=== PATIENT | female | born 1960 | race Caucasian/White ===

== ENCOUNTER 2017-08-26 10:13 | Emergency (ER) | payer SELFPAY ==
[2017-08-26 10:24] VITALS: BP 145/82; PULSE 93; RESP 20; TEMP 99.1; O2SAT 100
--- NOTE | 2017-08-26 12:27 | C.PDOC ---
History Of Present Illness 56-year-old female, PMHx includes Anxiety, presents to the emergency department with complaints of palpitations and anxiety. Patient states she has been experiencing palpitations that started this morning with feeling nervous, worried and very anxious. She admits to a Hx of anxiety, and states this is typical of her usual symptoms. She states she has been stressed because of family problems in home country. She is trying to arrange for travel. Denies nausea/vomiting, fever, chills, SI/HI, or any other associated symptoms. Time Seen by Provider: 08/26/17 11:31 Chief Complaint (Nursing): High Blood Pressure History Per: Patient History/Exam Limitations: no limitations Current Symptoms Are (Timing): Still Present Severity: Moderate Past Medical History Reviewed: Historical Data, Nursing Documentation, Vital Signs Vital Signs: Last Vital Signs Temp 99.1 F 08/26/17 10:19 Pulse 93 H 08/26/17 10:19 Resp 20 08/26/17 10:19 BP 145/82 08/26/17 10:19 Pulse Ox 100 08/26/17 18:28 - Medical History PMH: Anxiety, HTN Surgical History: No Surg Hx Family History: States: No Known Family Hx - Social History Hx Alcohol Use: No Hx Substance Use: No - Immunization History Hx Tetanus Toxoid Vaccination: No Hx Influenza Vaccination: No Hx Pneumococcal Vaccination: No Review Of Systems Constitutional: Negative for: Fever, Chills Cardiovascular: Negative for: Chest Pain, Palpitations Respiratory: Negative for: Shortness of Breath, Hemoptysis Gastrointestinal: Negative for: Vomiting Neurological: Negative for: Weakness, Numbness Psych: Positive for: Anxiety Physical Exam - Physical Exam Appears: Non-toxic, No Acute Distress, Other (appears anxious) Skin: Normal Color, Warm, Dry, No Rash Head: Atraumatic, Normacephalic Eye(s): bilateral: Normal Inspection, EOMI Nose: Normal Oral Mucosa: Moist Lips: Normal Appearing Throat: Normal Neck: Normal Chest: Symmetrical Cardiovascular: Rhythm Regular, No Murmur Respiratory: Normal Breath Sounds, No Rhonchi Gastrointestinal/Abdominal: Soft, No Tenderness Back: Normal Inspection, No Vertebral Tenderness, No Paraspinal Tenderness Extremity: Bilateral: Atraumatic, Normal Color And Temperature, Normal ROM Neurological/Psych: Oriented x3, Normal Speech Gait: Steady ED Course And Treatment ECG: Interpreted By Me, Viewed By Me ECG Rhythm: Sinus Tachycardia ECG Interpretation: No Acute Changes Rate From EC O2 Sat by Pulse Oximetry: 100 (RA) Pulse Ox Interpretation: Normal Medical Decision Making Medical Decision Making: Impression: Anxiety Plan: * EKG * Xanax EKG shows no acute changes. Xanax PO given Offer crisis services but patient declined. Additionally patient also complains of sneezing and runny nose and asking for meds for allergies Patient is not suicidal or homicidal and in no distress. She is stable for discharge. Information given for outpatient services and Rx given. Disposition Counseled Patient/Family Regarding: Diagnosis, Need For Followup, Rx Given - Disposition Referrals: [facility] [Outside] [facility] [Outside] [facility] [Outside] Disposition: HOME/ ROUTINE Disposition Time: 12:26 Condition: GOOD Prescriptions: Loratadine [Claritin] 10 mg PO DAILY #60 tab Instructions: Seasonal Allergies (DC), Anxiety, Adult (DC) Print Language: CHADIAN - POA Present On Arrival: None - Clinical Impression Clinical Impression: Anxiety, Allergic rhinitis - Scribe Statement The provider has reviewed the documentation as recorded by the Scribe (Ivory Molina) All medical record entries made by the Scribe were at my direction and personally dictated by me. I have reviewed the chart and agree that the record accurately reflects my personal performance of the history, physical exam, medical decision making, and the department course for this patient. I have also personally directed, reviewed, and agree with the discharge instructions and disposition.
--- NOTE | 2017-08-27 14:49 | CARD ---
APPROVED REPORT EKG Measurement Heart [id number] <Conclusion> Sinus tachycardia Low voltage QRS ST & T wave abnormality, consider anterolateral ischemia Abnormal ECG
== END 2017-08-26 12:37 | disposition home or self-care (01) ==
LOC: C.ER 10:13
DX: F41.9 Anxiety disorder, unspecified (principal); J30.9 Allergic rhinitis, unspecified